=== PATIENT | female | born 1990 | race Two or more races ===

== ENCOUNTER 2024-06-03 07:26 | Emergency (ER) | payer MEDICAID, SELFPAY ==
[2024-06-03 07:26] VITALS: BMI 27.1
[2024-06-03 07:51] VITALS: BP 127/86; PULSE 110; RESP 16; TEMP 37.3; O2SAT 100; BMI 27.3
--- NOTE | 2024-06-03 08:02 | XR_ITS ---
Examination: Complete OB ultrasound, less than 14 weeks, transabdominal Date and time of exam: June 03, 2024 0845 hours INDICATIONS: Vaginal bleeding and onset right pelvic pain today Technique: Obstetrical ultrasound images less than 14 weeks performed via transabdominal imaging Findings: A normal shaped single intrauterine gestation is present in the uterus. pole 2.3 cm corresponds to 9 week 0 day gestational age Cardiac motion 189 bpm Minimal fluid in the posterior cul-de-sac Ultrasonographic survey of visible and placental structures unremarkable. Amniotic fluid volume appears appropriate for this estimated gestational age. Right ovary 4.6 x 3.0 x 3.7 cm arterial flow 3.0 x 2.2 x 3.0 cm cyst Left ovary 3.5 x 2.6 x 2.6 cm arterial flow IMPRESSION: Viable intrauterine gestation 9 weeks 0 days.
--- NOTE | 2024-06-03 08:27 | PD.EDRME ---
Rapid Medical Screening Exam RME Arrival date/time: 06/03/24 07:26 This is a 34-year-old female 2 para 0 A1 presents emergency department with complaints of light bleeding x 1 day. I have greeted and performed a focused initial assessment of this patient. Initial appropriate labs ordered at this time. A comprehensive ED assessment and evaluation of the patient and analysis of all test and completion of medical decision making process will be conducted by additional ED provider. Chief Complaint: Vaginal Bleeding Time Seen by Provider: 06/03/24 07:34 Vital signs: Vital Signs Temperature 99.2 F 06/03/24 07:51 Pulse Rate 110 H 06/03/24 07:51 Respiratory Rate 16 06/03/24 07:51 Blood Pressure 127/86 H 06/03/24 07:51 Pulse Oximetry (%) 100 06/03/24 07:51 Oxygen Delivery Method Room Air 06/03/24 07:51
[2024-06-03 08:39] LABS: Collection Type, Urine Clean Catch
[2024-06-03 08:46] LABS: Bacteria,Urine Rare; Bilirubin,Urine Negative (Negative); Blood,Urine 1+ (Negative); Clarity,Urine Clear (Clear/Hazy); Color,Urine Lt-Yellow (Lt Yel-Yel); Glucose, Urine Negative (Negative); Ketones,Urine Negative (Negative); Leukocyte Esterase,Urine Positive (Negative); Nitrite,Urine Negative (Negative); Protein,Urine 1+ (Neg - Trace); RBC,Urine 4 /hpf (0-3); Specific Gravity,Urine 1.012 (1.001-1.035); Squamous Epithelial Cell,Urine 2 /hpf (0-5); Urobilinogen,Urine Negative mg/dL (0.0-1.0); WBC,Urine 31 /hpf (0-5)
[2024-06-03 08:46] LABS: Basophils % (Auto) 0 % (0-2.5); Eosinophils # (Auto) 0.2 Thou/mm3 (0.0-0.5); Eosinophils % (Auto) 1 % (0-10); Hematocrit 34.8 % (36.0-46.0); Hemoglobin 11.6 g/dL (12.0-16.0); Immature Granulocytes % (Auto) 0 % (0-0); Immature Granulocytes Auto 0.04 Thou/mm3 (0.00-0.00); Lymphocytes # (Auto) 1.9 Thou/mm3 (1.0-4.8); Lymphocytes % (Auto) 15 % (10-50); Mean Corpuscular HGB Conc 33.3 g/dl (31.0-37.0); Mean Corpuscular Hemoglobin 28.4 pg (25.0-35.0); Mean Corpuscular Volume 85 fL (80-100); Monocytes # (Auto) 0.7 Thou/mm3 (0.0-0.8); Monocytes % (Auto) 5 % (0-12); Neutrophils # (Auto) 10.1 Thou/mm3 (1.8-7.7); Neutrophils % (Auto) 79 % (37-80); Nucleated Red Blood Cell % 0 /100 WBC (0); Platelet Count 265 Thou/mm3 (140-440); RDW Standard Deviation 41.4 fL (36.4-46.3); Red Blood Count 4.09 Miln/mm3 (4.00-5.20); White Blood Count 12.9 Thou/mm3 (3.6-11.0)
[2024-06-03 09:05] LABS: Alanine Aminotransferase 20 U/L (10-49); Albumin, Serum 4.3 gm/dL (3.5-5.0); Albumin/Globulin Ratio 1.4 (1.2-2.2); Alkaline Phosphatase 91 U/L (46-116); Anion Gap 7 (7-16); BUN/Creatinine Ratio 12 Ratio (12-20); Bilirubin,Total 0.3 mg/dL (0.3-1.2); Blood Urea Nitrogen 12 mg/dL (9-23); Carbon Dioxide 25.4 mMol/L (20.0-31.0); Chloride 104 mMol/L (98-107); Estimated Creatinine Clearance 72.2 mL/min (>60); Glucose 99 mg/dL (74-106); Osmolality,Calculated 271 (275-295); Potassium 4.2 mMol/L (3.4-5.1); Sodium 136 mMol/L (136-145); Total Protein 7.3 gm/dL (5.7-8.2); eGFR > 60 See Note
[2024-06-03 09:14] LABS: Aspartate Amino Transferase 14 U/L (0-34)
[2024-06-03 10:25] LABS: Beta HCG,Quantitative 223742 mIU/mL (<5.0)
--- NOTE | 2024-06-03 13:02 | EDNOTE_ITS ---
ED OB Contraction Preg RMI/HPI General Chief complaint: Vaginal Bleeding Stated complaint: 9 WEEKS PREG C/O VAG BLEEDING Time Seen by Provider: 06/03/24 07:34 Arrival date/time: 06/03/24 07:26 RME / HPI RME / HPI Narrative: 34-year-old female 2 para 0 A1 presents emergency department with complaints of light bleeding x 1 day. Also complained of left-sided pelvic pain described as dull ache severity mild. Patient denies any fever. Denies any dysuria. Denies any frequency. Patient denies any vomiting. Related Data Previous Rx's ?Medication ?Instructions ?Recorded cephalexin 500 mg capsule 500 mg PO TID 7 days #21 caps 06/03/24 Allergies Allergy/AdvReac Type Severity Reaction Status Date / Time No Known Allergies Allergy Verified 06/03/24 07:29 Review of Systems Review of Systems Narrative Review of Systems: Review of system reviewed and within normal limits except mentioned in HPI ED Exam Narrative Physical exam: VITAL SIGNS: Reviewed. GENERAL APPEARANCE: Alert and interactive, follows commands, no acute distress, HEAD AND FACE: Non-traumatic. ENT: PERRL, pink conjunctivitis, eyelid no trauma, Mucous membrane moist. NECK: Supple, nontender, no nuchal rigidity. CHEST: No tenderness, no crepitus, no paradoxical movement, no retractions. LUNGS: Clear, well ventilated, symmetric, no rales, no wheezing, no ronchi, no stridor, good breath sounds bilaterally. HEART: Regular rate, regular rhythm, no murmur, no gallops. ABDOMEN: Soft, positive bowel sounds, nondistended, no guarding, nontender, no rebound, no masses, RECTAL: Deferred. GENITAL: Deferred. NEUROLOGICAL: Gross motor function intact sensory function intact, Appropriate for age. MUSCULOSKELETAL: low back nontender, full range of motion. EXTREMITIES: Nontender, full range of motion. SKIN: Color pink, dry, no rash, no lacerations, no abrasions, no contusions. LYMPHATICS: Deferred. Course Quality Measures none Orders Category Date Time Status US OB <= 14 weeks fetus Stat Exams 06/03/24 08:02 Completed ABO/RH Type Stat Lab 06/03/24 08:17 Completed Beta HCG,Quantitative Stat Lab 06/03/24 08:17 Completed CBC Stat Lab 06/03/24 08:17 Completed Comprehensive Metabolic Panel Stat Lab 06/03/24 08:17 Completed Urinalysis Stat Lab 06/03/24 08:14 Completed Urine Culture Stat Lab 06/03/24 08:14 Received cephALEXin [Keflex] Med 06/03/24 12:59 Discontinued 500 mg PO X1 ONE Vital Signs Vital signs: Vital Signs Temperature 99.2 F 06/03/24 07:51 Pulse Rate 110 H 06/03/24 07:51 Respiratory Rate 16 06/03/24 07:51 Blood Pressure 127/86 H 06/03/24 07:51 Pulse Oximetry (%) 100 06/03/24 07:51 Oxygen Delivery Method Room Air 06/03/24 07:51 Vaginal Bleeding MDM Narrative MDM Narrative: 34-year-old female 2 para 0 A1 presents emergency department with complaints of light bleeding x 1 day. Also complained of left-sided pelvic pain described as dull ache severity mild. Patient denies any fever. Denies any dysuria. Denies any frequency. Patient denies any vomiting. Patient's workup all came back unremarkable except for UTI. Ultrasound of showed single live intrauterine gestation about 9 weeks gestation. Results discussed with the family. Patient was given first dose of Keflex in the emergency room. Patient appears nontoxic and hemodynamically stable. Patient discharged home and instructed to follow-up with [facility] in 24 to 48 hours. Instructed to return to the emergency department immediately if worsening of symptoms Patient data External records reviewed:: None Clinical information provided by:: none Social determinants that could affect healthcare access:: none Patient has the following chronic illnesses:: None How is presenting disease/condition affected by chronic disease/condition?: no chronic disease Evaluation data The following diagnostics were reviewed and interpreted by me:: lab results and radiology exam(s) Lab and/or radiology exams considered but not ordered:: None Interpretation Summary: Laboratory workup all came back normal. Medications / Prescriptions Medications or Prescriptions considered but not ordered:: None Medication administrations:: Medication Administration History Discontinued Medications Cephalexin HCl (Cephalexin 250 Mg Capsule) 500 mg PO X1 ONE Stop: 06/03/24 13:00 Keflex Consultations Consultation(s) initiated? (list below): No Diagnosis Vaginal Bleeding Differential Diagnosis: threatened , vaginal bleeding and other (UTI, ) Most likely diagnosis given after review of the tests above:: UTI, Admission Indicated Admission indicated?: not indicated Explain why admission is indicated or not indicated:: Patient stable for discharge Admission Request Was there a request for admission?: No Disposition Plan Disposition Plan: Discharge Discharge Attestation Discharge Attestation: The patient was given an opportunity to ask questions and understood the discharge instructions. Discharge instructions specifically effects, indications for sooner follow up or return to the emergency department, and the expected course of current diagnosis. Patient condition: Stable Discharge Plan Plan Patient Disposition: HOME (Self Care) Disposition Comment: stable Prescriptions/Referrals Prescriptions/Med Rec: New cephalexin 500 mg capsule 500 mg PO TID 7 Days Qty: 21 0RF Referrals: Kenn Villalobos MD [Primary Care Provider] - In 1 week Problem List Clinical Impression: and not yet delivered in first trimester, UTI (urinary tract infection) Patient/Caregiver Discharge Instructions Discharge Activity: activity as tolerated Education Materials: Your First Trimester ... Additional Instructions: Thank you for the opportunity for serving you today. You are stable for discharged . You are advised to: Follow-up with your [facility] in 1 to 2 days Return to ED for worsening of symptoms Increase oral fluids Take medication as prescribed No sex, pelvic rest for 1 week or until cleared by [facility] Print Language: Urdu Stand Alone Forms: Clare Award Info., Patient Portal Info Letter HARLEY/SHANDRA Supervising Physician HARLEY/SHANDRA Supervising Physician: MD Mónica
[2024-06-03] MEDS: cephALEXin 250 MG CAPSULE 500 MG PO (13:24)
== END 2024-06-03 13:36 | disposition home or self-care (01) ==
PROVIDERS: Nurse Practitioner Primary Care; Emergency Provider Emergency Medicine; PCP Specialist
DX: O23.41 Unspecified infection of urinary tract in pregnancy, first trimester (principal); N39.0 Urinary tract infection, site not specified; Z3A.09 9 weeks gestation of pregnancy
CPT/HCPCS: 36415; 76801; 80053; 81001; 84702; 85025; 86900; 86901; 87086; 99284; A9270

== ENCOUNTER 2024-09-20 15:29 | Observation (INO) | payer MEDICAID, SELFPAY ==
[2024-09-20 15:37] VITALS: BP 121/72; PULSE 90; RESP 16; RESP 98; TEMP 36.8
[2024-09-20 15:41] VITALS: BMI 28.7
== END 2024-09-20 15:30 | disposition home or self-care (01) ==
LOC: S4SX 15:33
PROVIDERS: Admitting Provider Obstetrics & Gynecology; Visit Provider Obstetrics & Gynecology
DX: O36.8120 Decreased fetal movements, second trimester, not applicable or unspecified (principal); Z3A.24 24 weeks gestation of pregnancy

== ENCOUNTER 2024-12-01 14:32 | Inpatient (IN) | payer MEDICAID, SELFPAY ==
[2024-12-01] VITALS (129 sets, daily range): BP systolic 122–178; BP diastolic 65–123; PULSE 61–125; RESP 17–99; TEMP 36.8–37.1; O2SAT 91–100; BMI 29.6
--- NOTE | 2024-12-01 15:09 | XR_ITS ---
Examination: Ultrasound amniotic fluid TECHNIQUE: Limited transabdominal sonographic images pelvis Date and time: December 01, 2024 1530 hours INDICATIONS: Labor evaluation, diagnosis preeclampsia today FINDINGS: Amniotic fluid index 5.2 cm IMPRESSION: Amniotic fluid index 5.2 cm
--- NOTE | 2024-12-01 15:09 | XR_ITS ---
Examination: age Limited TECHNIQUE: Limited transabdominal sonographic images pelvis Date and time: December 01, 2024 1527 hours INDICATIONS: Labor evaluation, diagnosis be clamps aorta today FINDINGS: Viable intrauterine gestation cephalic presentation. spine maternal left Cardiac motion 141 BPM IMPRESSION: Viable intrauterine gestation cephalic presentation
[2024-12-01 15:53] LABS: Protein Total, Urine Volume 2200 mL/24hr (600-1800)
[2024-12-01 16:01] LABS: Protein Total, 24 hr Urine 1716 mg/24hr (<149); Protein Total, Urine 78 mg/dL (1-14)
[2024-12-01 16:09] LABS: Basophils % (Auto) 0 % (0-2.5); Eosinophils # (Auto) 0.2 Thou/mm3 (0.0-0.5); Eosinophils % (Auto) 2 % (0-10); Hematocrit 28.3 % (36.0-46.0); Hemoglobin 9.5 g/dL (12.0-16.0); Immature Granulocytes % (Auto) 1 % (0-0); Immature Granulocytes Auto 0.05 Thou/mm3 (0.00-0.00); Lymphocytes % (Auto) 20 % (10-50); Mean Corpuscular HGB Conc 33.6 g/dl (31.0-37.0); Mean Corpuscular Hemoglobin 29.1 pg (25.0-35.0); Mean Corpuscular Volume 87 fL (80-100); Monocytes # (Auto) 0.9 Thou/mm3 (0.0-0.8); Monocytes % (Auto) 9 % (0-12); Neutrophils # (Auto) 7.3 Thou/mm3 (1.8-7.7); Neutrophils % (Auto) 69 % (37-80); Nucleated Red Blood Cell % 0 /100 WBC (0); Platelet Count 173 Thou/mm3 (140-440); RDW Standard Deviation 48.1 fL (36.4-46.3); Red Blood Count 3.27 Miln/mm3 (4.00-5.20); White Blood Count 10.5 Thou/mm3 (3.6-11.0)
[2024-12-01] MEDS: BETAMET ACET/BETAMET NA PH (Celestone) 6 MG/ML VIAL 12 MG IM (16:09)
[2024-12-01] MEDS: RINGERS LACTATED 1000 ML 1,000 ML 75 ML IV (16:11)
[2024-12-01] MEDS: Magnesium Sulfate 4 GM Ivpb 4 GM/50 ML BAG IV (16:12)
[2024-12-01 16:29] LABS: Alanine Aminotransferase 30 U/L (10-49); Albumin, Serum 3.2 gm/dL (3.5-5.0); Albumin/Globulin Ratio 1.3 (1.2-2.2); Alkaline Phosphatase 121 U/L (46-116); Anion Gap 8 (7-16); Aspartate Amino Transferase 34 U/L (0-34); BUN/Creatinine Ratio 11 Ratio (12-20); Bilirubin,Total 0.3 mg/dL (0.3-1.2); Blood Urea Nitrogen 17 mg/dL (9-23); Calcium 8.9 mg/dL (8.3-10.6); Calcium (Corrected) 9.5 mg/dL (8.5-10.1); Carbon Dioxide 19.7 mMol/L (20.0-31.0); Chloride 108 mMol/L (98-107); Creatinine (Component) 1.5 mg/dL (0.6-1.3); Estimated Creatinine Clearance 50.1 mL/min (>60); Globulin 2.4 gm/dL (2.3-3.5); Glucose 75 mg/dL (74-106); Osmolality,Calculated 272 (275-295); Potassium 4.5 mMol/L (3.4-5.1); Sodium 136 mMol/L (136-145); Total Protein 5.6 gm/dL (5.7-8.2); eGFR 47 See Note
[2024-12-01] MEDS: MAGNESIUM SULF 20 GM IVPB 20 GM/500 ML BAG IV (16:41)
[2024-12-01 16:47] LABS: Syphilis Nonreactive (Nonreactive)
[2024-12-01] MEDS: MISOPROSTOL 50 mCg TABLET 25 MCG VAGINAL (18:00)
[2024-12-01 18:22] LABS: Magnesium 5.6 mg/dL (1.6-2.6)
[2024-12-01 18:28] LABS: Amphetamine/Metham Scrn,Ur OB Negative (Negative); Benzoylecgonine Screen, Ur OB Negative (Negative); Opiate Screen,Urine OB Negative (Negative); THC Screen,Urine OB Negative (Negative)
--- NOTE | 2024-12-01 19:12 | PD.LDHP ---
Documentation for date of: 12/01/24 OB Labor/Induct. HPI History of Present Illness Chief complaint: return of 24hr urine protein, elevated bp in office day prior : 2 Para: 0 Term pregnancies: 0 pregnancies: 0 Living children: 0 History of Abortions: Spontaneous and Elective: 1 History of Vaginal deliveries: 0 History of sections: No History of : No Date of last menstrual period: 03/02/24 GADIEL: 01/06/25 Gestational Age (weeks): 34 Gestational Age (days): 6 Gestational age based on last menstrual period: 39 Indication for induction: medical complication (pre-eclampsia with severe features) History of present illness: Jessi presents with 24hr urine protein collection to return. She was seen in office with Dr. Villalobos yesterday and had a severe range bp, did outpatient labs which showed serum creatinine 1.5. She has no ctx, lof, vaginal bleeding and feels normal movement. No SANCHEZ, vision changes or RUQ pain. History of Present Dating criteria: other (IUI) Adequate Care: Yes Narrative: : early sab no intervention G2: current, achieved via IUI. Anemia. A1GDM. Hypothyroidism. Taking iron, ASA, levothyroxine. Labs Maternal Blood Type: O Pos Labs: Positive: Rubella Titre, Negative: RPR, Hepatitis B, HIV, Chlamydia and Gonorrhea and Unknown: Group Beta Strep Narrative: 1hr glucola 175 3hr GTT: 76/233/258/184 NIPT negative Review of Systems Review of Systems Narrative Review of Systems: Review of Systems Systems Reviewed: All systems reviewed, normal except as documented Constitutional Constitutional: Denies body ache(s), Denies chills, Denies fever(s) and Denies headache(s) ENT Ears, Nose, Mouth, and Throat: Denies headache(s) and Denies vertigo Cardiovascular Cardiovascular: Denies chest pain, Denies palpitations, Denies dyspnea and Denies syncope Respiratory Respiratory: Denies cough, Denies dyspnea Gastrointestinal Gastrointestinal: Denies nausea and Denies vomiting Neurologic Neurologic: Denies convulsions, Denies headache(s), Denies other visual disturbances, Denies syncope and Denies vertigo Past Medical History Family History OTHER FAMILY HX: non-contributory Surgical History SURGICAL: Negative Section OTHER SURGICAL HX: 11/10/23: Diagnostic laparoscopy, right paratubal cystectomy and right ovarian cystectomy. 07/22/22: Hysteroscopy and MyoSure removal of endometrial polyp. Social History SOCIAL: . No tobacco, ETOH, illicit drug use Past Medical History Comments PMH COMMENT: Hypothyroidism Infertility treated with endometrial polypectomy Hyperlipidemia no meds Meds Home Medications and Allergies Home Medications ?Medication ?Instructions ?Recorded ?Confirmed ?Type aspirin 81 mg tablet,delayed mg 12/01/24 History release vitamin with calcium tab 12/01/24 History no.72-iron 27 mg-folic acid 1 mg tablet ( Vitamins Plus Low Iron) Allergies Allergy/AdvReac Type Severity Reaction Status Date / Time No Known Allergies Allergy Verified 06/03/24 07:29 OB Exam Physical Exam Vital signs: Temp Pulse Resp BP Pulse Ox 98.6 F 82 17 129/79 99 12/01/24 14:58 12/01/24 18:59 12/01/24 14:58 12/01/24 18:59 12/01/24 19:12 Narrative: General: well developed, well nourished, no acute distress, conversant Cardiac: normal heart rate Lungs: breathing without distress Abdomen: soft, gravid, non-tender, no rebound or guarding Extremities: trace edema BLE Detailed Labor and Delivery Exam Dilation (cm): 1 Effacement (%): 75 Cervix position: mid station: -2 Consistency: soft Presentation: Vertex Membranes: intact monitor accelerations: 15x15 monitor decelerations: None alf variability: Moderate (11-25) Contraction frequency (min): no ctx pattern OB Results Labs 12/01/24 15:53 12/01/24 15:26 Labs: Short CBC 12/01/24 Range/Units 15:53 WBC 10.5 (3.6-11.0) Thou/mm3 Hgb 9.5 L (12.0-16.0) g/dL Hct 28.3 L (36.0-46.0) % Plt Count 173 (140-440) Thou/mm3 BMP 12/01/24 15:26 Sodium 136 Potassium 4.5 Chloride 108 H Carbon Dioxide 19.7 L BUN 17 Creatinine 1.5 H Glucose 75 Calcium 8.9 Liver Function 12/01/24 Range/Units 15:26 Total Bilirubin 0.3 (0.3-1.2) mg/dL AST 34 (0-34) U/L ALT 30 (10-49) U/L Alkaline Phosphatase 121 H (46-116) U/L Albumin 3.2 L (3.5-5.0) gm/dL OB Assessment & Plan Assessment and Plan (1) Pre-eclampsia, severe, third trimester: Status: Acute Assessment and plan: Jessi is a 34yo with SIUP at 34&6wk with new diagnosis of pre-eclampsia with severe features based on severe range bp's, 24hr urine protein: 1,716mg, serum creatinine 1.5. (creatinine was 1 in May). Plt 173, normal LFTs. Hgb 9.5. SCE: /-3. ultrasound shows borderline oligohydramnios (YO 5.2cm), cephalic. Growth ultrasound on 11/[address] Villalobos: 2180g, 15th%ile PMhx/PNC also significant for: -A1GDM -Hypothyroidism taking 25mcg levothyroxine QD -Anemia taking iron -Infertility treated with endometrial polypectomy. achieved via IUI. Plan: -Admit to L&D -Initiate IV MgSO4 4g/2g with Mg checks and neuro checks per protocol -Will follow anti-HTN med protocol for persistent severe range bp's -CEFM -Betamethasone 12mg IM, repeat in 12hr -Carb consistent diet [id number], then clear liquid diet in labor. Fingerstick glucose checks 1hr after meals, then q2hr once in labor. Notify MD if >200 -Counseled/consented re: iol and . Discussed diagnosis of pre-eclampsia with severe features at length, discussed infant will go to NICU. Answered all questions. -GBS status: unknown. Ampicillin per protocol to begin at 4cm -IOL initiated with: cytotec 25mcg PV Q4hr and cervical moreland balloon with 40cc NS in intra-uterine balloon only- well tolerated -Continue levothyroxine 25mcg PO QD -Anticipate -Safe to proceed Felicia Conner MD (2) Encounter for induction of labor: Status: Acute (3) Gestational diabetes, diet controlled: Status: Acute (4) Hypothyroidism affecting in third trimester: Status: Acute (3) Gestational diabetes, diet controlled Qualifiers: Trimester: third trimester Qualified Code(s): O24.410 - Gestational diabetes mellitus in , diet controlled
[2024-12-01] MEDS: fentaNYL CIT INJ 50 mCg/ML AMP 2ML 100 MCG IVP ×2 (19:50→22:00)
[2024-12-01] MEDS: ONDANSETRON INJ 2 MG/ML INJ 2 ML 4 MG IVP (22:44)
[2024-12-02] VITALS (369 sets, daily range): BP systolic 108–168; BP diastolic 56–85; PULSE 76–104; RESP 18–19; TEMP 36.6–37.1; O2SAT 90–100
[2024-12-02 01:51] LABS: Magnesium 9.3 mg/dL (1.6-2.6)
[2024-12-02] MEDS: Ampicillin Inj 2,000 MG in SODIUM CHLORIDE 0.9% (POP) 100 ML 200 MG IV (02:30)
[2024-12-02] MEDS: MAGNESIUM SULF 20 GM IVPB 20 GM/500 ML BAG IV (02:30)
[2024-12-02] MEDS: RINGERS LACTATED 1000 ML 1,000 ML 75 ML IV ×2 (02:38→03:19)
[2024-12-02] MEDS: OXYTOCIN in NS 30 units 30 UNIT/500 ML BAG IV (02:38)
[2024-12-02] MEDS: LEVOTHYROXINE SODIUM 25 MCG TABLET PO (05:52)
[2024-12-02] MEDS: Ampicillin Inj 1,000 MG in SODIUM CHLORIDE 0.9% (Popper) 50 ML 50 MG IV ×5 (05:57→22:04)
[2024-12-02 07:02] LABS: Magnesium > 5.0 mg/dL (1.6-2.6)
--- NOTE | 2024-12-02 08:04 | PD.LDPN ---
Documentation for date of: 12/02/24 OB Labor Progress Note Pain Control Pain control: tolerating well Comments: Patient is a 34-year-old -0-1-0 at 35-0/7 weeks all care uncomplicated Dr Villalobos being induced for elevated blood pressures with a creatinine of 1.5 and a 24-hour urine of approximately 1100 mg. Patient is on magnesium. She was examined approximately 7:30 in the morning she is 4 cm 80-2. Patient does not tolerate exams well and is interested in epidural but not yet. She is on 9 milliunits/min of Pitocin currently. She is Macedonian-speaking only. Pelvic Exam Dilation (cm): 4 Effacement (%): 80 station: -2 Amniotic membrane status: Intact Contractions Monitor mode: External Contraction frequency: 2-5.5 Contraction pattern: Coupling Contraction intensity: Mild Status status: Category l Assessment and Plan Assessment: induction ongoing Plan OB labor note: continuous present management Comments: Recommended epidural and then I can AROM the patient and augment labor more efficiently.
[2024-12-02 13:05] LABS: Magnesium > 5.0 mg/dL (1.6-2.6)
[2024-12-02] MEDS: ACETAMINOPHEN 325 MG TABLET 650 MG PO (13:25)
[2024-12-02] MEDS: BETAMET ACET/BETAMET NA PH (Celestone) 6 MG/ML VIAL 12 MG IM (16:04)
[2024-12-02 19:22] LABS: Magnesium > 10.0 mg/dL (1.6-2.6)
[2024-12-02 20:15] LABS: Basophils % (Auto) 0 % (0-2.5); Eosinophils % (Auto) 0 % (0-10); Hematocrit 30.4 % (36.0-46.0); Hemoglobin 10.3 g/dL (12.0-16.0); Immature Granulocytes % (Auto) 1 % (0-0); Immature Granulocytes Auto 0.21 Thou/mm3 (0.00-0.00); Lymphocytes # (Auto) 1.3 Thou/mm3 (1.0-4.8); Lymphocytes % (Auto) 6 % (10-50); Mean Corpuscular HGB Conc 33.9 g/dl (31.0-37.0); Mean Corpuscular Hemoglobin 28.9 pg (25.0-35.0); Mean Corpuscular Volume 85 fL (80-100); Monocytes # (Auto) 0.4 Thou/mm3 (0.0-0.8); Monocytes % (Auto) 2 % (0-12); Neutrophils # (Auto) 21.9 Thou/mm3 (1.8-7.7); Neutrophils % (Auto) 92 % (37-80); Nucleated Red Blood Cell % 0 /100 WBC (0); Platelet Count 197 Thou/mm3 (140-440); RDW Standard Deviation 48.2 fL (36.4-46.3); Red Blood Count 3.56 Miln/mm3 (4.00-5.20); White Blood Count 23.8 Thou/mm3 (3.6-11.0)
[2024-12-02 20:30] LABS: Fibrinogen 502 mg/dL (175-375); INR 0.9 (0.9-1.3); Partial Thromboplastin Time 21.7 Seconds (22.0-36.0); Prothrombin Time 9.6 Seconds (9.0-12.2)
[2024-12-02 20:32] LABS: Alanine Aminotransferase 33 U/L (10-49); Albumin, Serum 3.3 gm/dL (3.5-5.0); Albumin/Globulin Ratio 1.3 (1.2-2.2); Alkaline Phosphatase 131 U/L (46-116); Anion Gap 12 (7-16); Aspartate Amino Transferase 32 U/L (0-34); BUN/Creatinine Ratio 11 Ratio (12-20); Bilirubin,Total 0.3 mg/dL (0.3-1.2); Blood Urea Nitrogen 17 mg/dL (9-23); Calcium 7.7 mg/dL (8.3-10.6); Calcium (Corrected) 8.3 mg/dL (8.5-10.1); Carbon Dioxide 16.9 mMol/L (20.0-31.0); Chloride 104 mMol/L (98-107); Creatinine (Component) 1.5 mg/dL (0.6-1.3); Estimated Creatinine Clearance 50.1 mL/min (>60); Globulin 2.6 gm/dL (2.3-3.5); Glucose 119 mg/dL (74-106); Osmolality,Calculated 268 (275-295); Potassium 4.6 mMol/L (3.4-5.1); Sodium 133 mMol/L (136-145); Total Protein 5.9 gm/dL (5.7-8.2); Uric Acid 13.1 mg/dL (3.1-7.8); eGFR 47 See Note
[2024-12-02 20:57] LABS: Magnesium 8.8 mg/dL (1.6-2.6)
[2024-12-03] VITALS (55 sets, daily range): BP systolic 121–172; BP diastolic 60–123; PULSE 65–114; RESP 16–19; TEMP 36.3–36.9; O2SAT 83–100
[2024-12-03] MEDS: RINGERS LACTATED 1000 ML 1,000 ML 75 ML IV (00:04)
[2024-12-03] MEDS: OXYTOCIN in NS 20 units 20 UNIT/1,000 ML BAG 125 UNIT IV (01:58)
[2024-12-03] MEDS: MISOPROSTOL 200 mCg TABLET 800 MCG PR (01:59)
[2024-12-03] MEDS: BENZO/LANO/ALOE (Dermoplast) 60 GM CAN 1 SPRAY TOP (02:50)
--- NOTE | 2024-12-03 03:02 | PD.LDDELS ---
Data (Roque) Data Hx Section: No Maternal Blood Type: O Pos Rubella Titre: Positive RPR: Non-reactive Labs: Negative: RPR, Hepatitis B, HIV, Chlamydia and Gonorrhea and Unknown: Group Beta Strep : 2 Term: 0 : 0 Livin Abortions: Spontaneous & Theraputic: 1 Delivery Data (Roque) Labor Data Initiation of labor: Induction Induction/Augmentation Agent: Cytotec-Vaginal, Cervical Balloon, Pitocin and Artificial ROM ROM date: 12/02/24 ROM time: 14:58 Amniotic membrane rupture type: Artificial Amniotic fluid description: Clear and Blood Tinged Delivery Data EDC: 01/06/25 EDC calculated by:: LMP/early US confirmation Date of arrival to unit: 12/01/24 Onset of labor date: 12/02/24 Onset of labor time: 23:00 Complete dilation date: 12/03/24 Complete dilation time: 01:00 [place] delivery date: 12/03/24 [place] delivery time: 01:51 Gestational age (weeks): 35 Gestational age (days): 1 Placenta delivery date: 12/03/24 Placenta delivery time: 01:55 Stage 1 total time: Labor - Stage 1 Duration 2 hours and 0 minutes Delivered by: Dr. Brasher Delivery nurse: Gibson Coronado RN. [place] nurse: Jerica Ko RN. Employment Law Attorney at delivery: No Support person(s) at delivery: Father of the baby. Other staff at delivery: Belgica Benitez RNC. Huey Montenegro RN. Delivery Method Delivery method: Normal Vaginal Delivery Presentation: Vertex position: OA Anesthesia Type Anesthesia Type: Epidural Delivery Room Medications Delivery room medications: Cytotec 800 NM Placenta Placenta delivery description: Spontaneous Placenta Disposition: Sent to Pathology Cord blood sent to lab: Yes cord blood collection: Cord Blood Type, Arterial Cord Blood Gas and Venous Cord Blood Gas Lacerations #1: Perineal: 1st degree Perineal repair Sutures used for repair: 4.0 Chromic EBL Estimated blood loss (ml): 300 Umbilical Cord cord description: 3 Vessels Additional Procedures The patient is a 34-year-old -0-1-[address] Conner 12/01/2024 for an induction of labor for severe preeclampsia. She was 35 and 1 sevenths weeks . Patient had a creatinine of 1.5 and a 24-hour urine of 1200 mg of protein. The morning of 12/02/2024 I took over patient who was 3 to 4 cm dilated. She eventually got an epidural. She was induced all day on Pitocin and eventually reaching 20 milliunits of pit per minute. She progressed to complete and due to some decelerations with pushing her Pitocin was turned off per hospital policy. Patient's contractions spaced to about every 7-8 minutes. She then pushed through 6-7 contractions delivering a liveborn female. Findings liveborn female in the AWILDA presentation with no nuchal cord and no meconium. Apgars were 8 and 9. Weight was 3 pounds 12 ounces. Of note, no manager recruiting was present at delivery. There was a ALLERGY NURSE and a respiratory therapist. Blood gases were sent and the placenta was sent to pathology secondary to prematurity. The placenta was complete spontaneous with a velamentous insertion otherwise grossly normal. Patient sustained a first-degree perineal laceration repaired in a standard fashion using 4-0 chromic. EBL was 300 cc. Complications were none. Condition both mom and were in stable condition in the delivery room. Complications Complications: none [place] Data ([place]) Data [place]'s gender: Female Identification band number: [id number] weight (gms): 1690 g Weight (pounds): 3 lbs and 11.6 ozs 1 minute: 8 5 minutes: 9
[2024-12-03] MEDS: ACETAMINOPHEN 325 MG TABLET 650 MG PO ×2 (04:12→20:01)
[2024-12-03] MEDS: LEVOTHYROXINE SODIUM 25 MCG TABLET PO (06:33)
[2024-12-03] MEDS: IBUPROFEN TAB 400 MG TABLET 800 MG PO ×2 (06:44→18:14)
[2024-12-03] MEDS: ceFAZolin/D5W 2 GM IV 2 GM/100 ML BAG IV (06:57)
[2024-12-03 10:22] LABS: Basophils % (Auto) 0 % (0-2.5); Eosinophils % (Auto) 0 % (0-10); Hematocrit 25.1 % (36.0-46.0); Hemoglobin 8.6 g/dL (12.0-16.0); Immature Granulocytes % (Auto) 2 % (0-0); Immature Granulocytes Auto 0.57 Thou/mm3 (0.00-0.00); Lymphocytes # (Auto) 1.3 Thou/mm3 (1.0-4.8); Lymphocytes % (Auto) 4 % (10-50); Mean Corpuscular HGB Conc 34.3 g/dl (31.0-37.0); Mean Corpuscular Hemoglobin 29.7 pg (25.0-35.0); Mean Corpuscular Volume 87 fL (80-100); Monocytes # (Auto) 1.3 Thou/mm3 (0.0-0.8); Monocytes % (Auto) 4 % (0-12); Neutrophils # (Auto) 26.3 Thou/mm3 (1.8-7.7); Neutrophils % (Auto) 89 % (37-80); Nucleated Red Blood Cell % 0 /100 WBC (0); Platelet Count 165 Thou/mm3 (140-440); RDW Standard Deviation 48.9 fL (36.4-46.3); White Blood Count 29.5 Thou/mm3 (3.6-11.0)
--- NOTE | 2024-12-03 11:05 | PC.NURSE ---
Barry MANTILLA notified of WBC increase and Hgb decerease. Orders received to keep LR running at 125ml/hr
[2024-12-03] MEDS: HYDROcodone/APAP 5/325 TABLET 1 TAB PO (11:14)
[2024-12-03] MEDS: RINGERS LACTATED 1000 ML 1,000 ML 125 ML IV (14:23)
--- NOTE | 2024-12-03 19:12 | PC.NURSE ---
[address] Barry kennedy lock patient
[2024-12-04] VITALS: BP 128/82; PULSE 70; RESP 17; TEMP 36.8; O2SAT 98
[2024-12-04 04:00] VITALS: BP 137/81; PULSE 67; RESP 17; TEMP 36.6; O2SAT 99
[2024-12-04] MEDS: LEVOTHYROXINE SODIUM 25 MCG TABLET PO (06:02)
[2024-12-04 07:14] LABS: Basophils % (Auto) 0 % (0-2.5); Eosinophils % (Auto) 0 % (0-10); Hematocrit 23.9 % (36.0-46.0); Hemoglobin 8.2 g/dL (12.0-16.0); Immature Granulocytes % (Auto) 1 % (0-0); Immature Granulocytes Auto 0.27 Thou/mm3 (0.00-0.00); Lymphocytes # (Auto) 2.2 Thou/mm3 (1.0-4.8); Lymphocytes % (Auto) 10 % (10-50); Mean Corpuscular HGB Conc 34.3 g/dl (31.0-37.0); Mean Corpuscular Hemoglobin 29.8 pg (25.0-35.0); Mean Corpuscular Volume 87 fL (80-100); Monocytes # (Auto) 1.4 Thou/mm3 (0.0-0.8); Monocytes % (Auto) 7 % (0-12); Neutrophils # (Auto) 17.7 Thou/mm3 (1.8-7.7); Neutrophils % (Auto) 82 % (37-80); Nucleated Red Blood Cell % 0 /100 WBC (0); Platelet Count 154 Thou/mm3 (140-440); RDW Standard Deviation 50.1 fL (36.4-46.3); Red Blood Count 2.75 Miln/mm3 (4.00-5.20); White Blood Count 21.6 Thou/mm3 (3.6-11.0)
[2024-12-04 08:00] VITALS: BP 138/84; BP 146/84; PULSE 68; RESP 18; TEMP 36.6; O2SAT 99
--- NOTE | 2024-12-04 08:26 | PD.LDPPPRG ---
Subjective Subjective Interval history: Delivery type: Patient doing well this morning. No acute complaints. Ambulating, tolerating p.o. and voiding without difficulty. HTN/Pre-Eclampsia screen: No chest pain, shortness of breath, headache, visual changes, epigastric or right upper quadrant pain. lochia diminishing. Bowel: Flatus+/ BM+ Exam Vital Signs Temp Pulse Resp BP Pulse Ox O2 Del Method 98 F 68 18 146/84 H 99 Room Air 12/04/24 08:00 12/04/24 08:00 12/04/24 08:00 12/04/24 08:00 12/04/24 08:00 12/04/24 08:00 Constitutional Constitutional: no acute distress Routine HEENT Exam Head: Present normocephalic and atraumatic Eye: Present EOMI and PERRL ENT: Present mucous membranes moist Routine Neck Exam Neck: Present supple and trachea midline Routine Respiratory Exam Respiratory: Present chest non-tender, lungs clear, normal breath sounds and no resp distress Routine Cardiovascular Exam Cardiovascular: Present RRR Routine Abdominal Exam Abdominal: Present soft and normoactive bowel sounds Routine Extremities Exam Extremities: Present full ROM Routine Skin Exam Skin: Present intact, dry and warm Routine Neurological Exam Neurological: Present alert, oriented X3 and CN II-XII intact Routine Psychiatric Exam Psychiatric: Present normal affect and normal thought process Objective Labs 12/04/24 06:35 12/02/24 19:52 Labs: Laboratory Results - last 24 hr 12/03/24 12/04/24 09:24 06:35 WBC 29.5 H D 21.6 H D RBC 2.90 L 2.75 L Hgb 8.6 L 8.2 L Hct 25.1 L 23.9 L MCV 87 87 MCH 29.7 29.8 MCHC 34.3 34.3 RDW Std Deviation 48.9 H 50.1 H Plt Count 165 D 154 Neut % (Auto) 89 H 82 H Lymph % (Auto) 4 L 10 [place] % (Auto) 4 7 Eos % (Auto) 0 0 Baso % (Auto) 0 0 Neut # (Auto) 26.3 H 17.7 H Lymph # (Auto) 1.3 2.2 [place] # (Auto) 1.3 H 1.4 H Eos # (Auto) 0.0 0.0 Baso # (Auto) 0.0 0.0 Immature Gran # (Auto) 0.57 H 0.27 H Absolute Nucleated RBC 0.00 0.00 Immature Gran % 2 H 1 H Nucleated RBC % 0 0 Assessment & Plan Problem List (1) Pre-eclampsia, severe, third trimester: Status: Acute Assessment and plan: PPD/POD#2 1. Continue routine care 2. Transition to PO meds. 3. Encourage to ambulate/ breast-feed 4. Anticipate discharge home today. (2) Encounter for induction of labor: Status: Acute (3) Gestational diabetes, diet controlled: Status: Acute (4) Hypothyroidism affecting in third trimester: Status: Acute Time Spent With Patient Time: Total time spent is greater than 50% in coordination of care (as documented) at patient's floor/unit and/or counseling patient:
--- NOTE | 2024-12-04 08:28 | PD.LDDS ---
DS: Providers Provider Date of admission: 12/01/24 15:11 Primary care physician: Physician No Primary/Family Admitting Provider: Felicia Conner MD Attending Provider on Admission: Feliberto Reddy MD Consults: 12/03/24 02:15 Referral Routine Comment: Attending Provider on DC: Feliberto Reddy MD Discharging Provider: Feliberto Reddy MD DS: Diagnosis Discharge Diagnosis (1) Hypothyroidism affecting in third trimester: Status: Acute (2) Gestational diabetes, diet controlled: Status: Acute (3) Pre-eclampsia, severe, third trimester: Status: Acute Problem List Completed Was Problem List Reviewed/Reconciled?: Yes Summary/Hosp Course Brief History: Jessi presents with 24hr urine protein collection to return. She was seen in office with Dr. Villalobos yesterday and had a severe range bp, did outpatient labs which showed serum creatinine 1.5. She has no ctx, lof, vaginal bleeding and feels normal movement. No SANCHEZ, vision changes or RUQ pain. Peripartum Data Delivery Method: Normal Vaginal Delivery Episiotomy Description: Midline Time Spent with Patient Time attestation: Total time spent providing and/or coordinating discharge services: Exam Vital Signs Temp Pulse Resp BP Pulse Ox O2 Del Method 98 F 68 18 146/84 H 99 Room Air 12/04/24 08:00 12/04/24 08:00 12/04/24 08:00 12/04/24 08:00 12/04/24 08:00 12/04/24 08:00 Discharge Plan Plan Patient Disposition: HOME (Self Care) Patient condition on transfer: Stable Prescriptions/Referrals Prescriptions/Med Rec: New ibuprofen 400 mg Tablet 800 mg PO Q8H PRN (Reason: See Comments) 10 Days Qty: 40 0RF docusate sodium [Stool Softener] 100 mg capsule 100 mg PO QDAY 30 Days Qty: 30 0RF Continued Vitamin Plus Low Iron 27 mg iron- 1 mg tablet Patient Comments: TAKE 1 TABLET BY MOUTH ONCE DAILY Discontinued aspirin 81 mg tablet,delayed release (DR/EC) Referrals: No Primary/Family,Physician [Primary Care Provider] - Patient/Caregiver Discharge Instructions Discharge Activity: activity as tolerated and other Other Discharge Activity Instructions:: vaginal rest and no heavy lifting more than 10 pounds for 6 weeks Other Discharge Diet Instructions: regular diet Print Language: [place] Stand Alone Forms: [facility] Award Info., Patient Portal Info Letter Planned Discharge Date 12/04/24 (2) Gestational diabetes, diet controlled Qualifiers: Trimester: third trimester Qualified Code(s): O24.410 - Gestational diabetes mellitus in , diet controlled
== END 2024-12-04 11:10 | disposition home or self-care (01) | DRG 560 ==
LOC: S4SX 12-02 10:19 → S4NX 12-03 06:29
PROVIDERS: Obstetrics & Gynecology; Admitting Provider Obstetrics & Gynecology; Visit Provider Obstetrics & Gynecology
DX: O14.14 Severe pre-eclampsia complicating childbirth (principal); Z3A.39 39 weeks gestation of pregnancy; Z37.0 Single live birth; E03.9 Hypothyroidism, unspecified; O99.284 Endocrine, nutritional and metabolic diseases complicating childbirth; O41.03X0 Oligohydramnios, third trimester, not applicable or unspecified; O24.420 Gestational diabetes mellitus in childbirth, diet controlled; O70.0 First degree perineal laceration during delivery; O99.02 Anemia complicating childbirth; N97.9 Female infertility, unspecified
CPT/HCPCS: 36415; 59025; 59409; 76815; 80053; 80307; 83735; 84156; 84550; 85025; 85384; 85610; 85730; 86780; 86850; 86900; 86901; 86923; 94762; J0290; J0689; J0702; J2405; J2590; J2795; J3010; J3475; J7050; J7120; S0191; A9270